=== PATIENT | female | born 1940 | race Caucasian/White ===

== ENCOUNTER 2017-03-23 23:35 | Emergency (ER) | payer MEDICARE, BC ==
[~2017-03-23] VITALS: Ht 162.6 cm; Wt 55.0 kg
[~2017-03-23 23:35] MED LIST: BACTDS PO; IBAN150T7 PO; IBUP400T22 PO
[2017-03-23 23:37] VITALS: Ht 162.6 cm; Wt 55.0 kg
[2017-03-24] MEDS ORDERED: ACETAMINOPHEN 500 MG TAB PO STA (00:17)
[2017-03-24] MEDS ORDERED: TETRACAINE 0.5% 4 ML OPH LEFT EYE ONE (00:30)
[2017-03-24] MEDS ORDERED: FLUORESCEIN STRIP LEFT EYE ONE (00:30)
[2017-03-24] MEDS ORDERED: ACET500C5 PO (01:03)
[2017-03-24] MEDS ORDERED: IBUP-1542 PO (01:03)
[2017-03-24] MEDS ORDERED: ACYC800T57 PO (01:04)
--- NOTE | 2017-03-24 01:26 | ERD ---
ER Documentation Chief Complaint Date/Time DATE: 03/24/17 TIME: 01:21 Chief Complaint migraine headache w/ a rash on the left forehead HPI This is 76-year-old female who presents the emergency department today complaining of a headache on the left side of her head and a rash. Patient states that 4 days ago she noticed a "funny sensation on the left side of her head". States that she has been under a lot of stress. States that she saw her primary care doctor and was told that her headache was stress related. States that she started noticing a rash couple of days ago. States she is taking ibuprofen and Tylenol for pain. Denies any fevers, blurred vision , dizziness. Denies any trauma. ROS All systems reviewed and are negative except as per history of present illness. Medications Home Meds Active Scripts Acyclovir* (Zovirax*) 800 Mg Tablet, 800 MG PO 5 TIMES DAILY for 10 Days, TAB Prov:CARIN PADILLA PA-C 03/24/17 Acetaminophen* (Tylophen*) 500 Mg Capsule, 1 CAP PO Q6H Y for PAIN AND OR ELEVATED TEMP, #30 CAP Prov:CARIN PADILLA PA-C 03/24/17 Ibuprofen* (Motrin*) 600 Mg Tab, 600 MG PO Q6, #30 TAB Prov:CARIN PADILLA PA-C 03/24/17 Ibuprofen* (Motrin*) 400 Mg Tab, 400 MG PO Q6, #14 TAB Prov:ELVIA FELDMAN MD 12/20/14 Sulfamethoxazole-Trimethoprim* (Bactrim* DS) 800-160 Mg Tab, 1 TAB PO BID for 7 Days, TAB Prov:ELVIA FELDMAN MD 12/20/14 Reported Medications Ibandronate Sodium* (Boniva*) 150 Mg Tablet, 150 MG PO Q28D, TAB 12/20/14 Allergies Allergies: Coded Allergies: No Known Allergy (Unverified , 12/20/14) PMhx/Soc History of Surgery: Yes (Sebaceous Cyst Biopsy) Anesthesia Reaction: No Hx Neurological Disorder: No Hx Respiratory Disorders: No Hx Cardiac Disorders: No Hx Psychiatric Problems: No Hx Miscellaneous Medical Probl: Yes (Osteoporosis,Shingles) Hx Alcohol Use: No Hx Substance Use: No Hx Tobacco Use: No Smoking Status: Never smoker Physical Exam Vitals Vital Signs Date Time Temp Pulse Resp B/P Pulse Ox O2 Delivery O2 Flow Rate FiO2 03/23/17 23:37 98.8 69 20 140/64 98 Physical Exam Const: pleasant, NAD Head: Atraumatic. Evidence of rash with small vesicles over left side of forehead and left side of parietal area of scalp Eyes: Normal Conjunctiva PERRLA. EOM intact. ENT: Normal External Ears, Nose and Mouth. Neck: Full range of motion..~ No meningismus. Resp: Clear to auscultation bilaterally Cardio: Regular rate and rhythm, no murmurs Abd: Soft, non tender, non distended. Normal bowel sounds Skin: Evidence of rash with small vesicles over left side of forehead and left side of parietal area of scalp Back: No midline or flank tenderness Ext: No cyanosis, or edema. Neur: Awake and alert nerves II through XII intact. No gait ataxia. Psych: Normal Mood and Affect Results 24 hrs Current Medications Medications (Trade) Dose Ordered Sig/Kenn Route PRN Reason Start Time Stop Time Status Last Admin Dose Admin Acetaminophen (Tylenol Tab) 500 mg ONCE STAT PO 03/24/17 00:17 10 00:20 DC 03/24/17 00:26 Tetracaine HCl (Tetracaine 0.5% Steri-Unit Kristina) 1 drop ONCE ONCE LEFT EYE 03/24/17 00:30 10 00:31 DC Fluorescein Sodium (Fwomc-O-Nbwvx) 1 strip ONCE ONCE LEFT EYE 03/24/17 00:30 03/24/17 00:31 DC Procedures/MDM This is a 76-year-old female who presents to the emergency department today for a headache on the left side of her head as well as a recently developed a rash. On physical exam patient appears to have evidence of shingles given the localized vesicles. Patient is afebrile and otherwise well-appearing. She has no focal neurologic deficits and no gait ataxia. Despite patient's age and complaints of headache I feel that it is likely caused by her shingles. I do not feel that she requires a head CT scan at this time. Low suspicion for acute hemorrhage, mass, abscess, meningitis. Patient did indicate that she does have good primary care follow-up in the doctor was willing to further evaluate her headache should it persist. Given location of patient's shingles rash over the left side of her forehead and left side of head and above eyebrow I did stain the patient's eye to look at it under fluorescein. There is no evidence of dendritic lesions. Low suspicion for ophthalmic involvement. There is no evidence of Corey sign. Patient is currently in recovery and declined any narcotic pain medications. She was given Tylenol for pain. She was given a prescription for Tylenol and Motrin for home in addition to acyclovir. At this time the patient is stable for discharge and outpatient management. Patient should follow up with their PCP in the next 1-2 days. They may return to the emergency department sooner for any persistent or worsening of symptoms. Patient understood and agreed with the plan. Departure Diagnosis: Primary Impression: Headache Headache type: unspecified Headache chronicity pattern: episodic headache Intractability: not intractable Qualified Code: R51 - Nonintractable episodic headache, unspecified headache type Additional Impression: Shingles Herpes zoster complications: without complications Qualified Code: B02.9 - Herpes zoster without complication Condition: Fair Patient Instructions: Self-Care for Headaches, Shingles (Herpes Zoster) Additional Instructions: Call your primary care doctor TOMORROW for an appointment during the next 1-2 days.See the doctor sooner or return here if your condition worsens before your appointment time. Tylenol every 4 hours or Motrin every 6 hours for pain or headache. Take antivirals as prescribed CARIN PADILLA PA-C Mar 24, 2017 01:26
== END 2017-03-24 01:22 | disposition home or self-care (01) ==
LOC: FTE 23:35
DX: B02.9 Zoster without complications (principal)
CPT/HCPCS: 99283

== ENCOUNTER 2017-03-25 00:02 | Emergency (ER) | payer BC, MEDICARE ==
[~2017-03-25 00:02] MED LIST changes: +ACET500C5 PO; +ACYC800T57 PO; +IBUP-1542 PO
--- NOTE | 2017-03-26 15:31 | EN ---
Date/Time of Note Date/Time of Note DATE: 03/26/17 TIME: 15:28 ER Progress Note I placed a call to check on the patient today and patient indicated she had come back to [facility] the next day as she was concerned that the rash was spreading towards her eye. Patient left without being seen. Patient did follow up with her training associate yesterday and stated that there was not any concern for any eye involvement at this time. She also stated that she started having some nausea and thinks it is the medication that she is taking. She states she took a Zofran that her friend gave her and she called her primary care doctor and her primary care doctor will call her in a prescription. She did say that her headache is reportedly better. I explained to her that if her headache returns or is not better that she should come back to the hospital or follow-up with her primary care doctor. Patient understood and thanked me for my call. CARIN PADILLA PA-C Mar 26, 2017 15:31
== END 2017-03-25 00:15 | disposition left against medical advice (07) ==
LOC: FTE 00:02 → E/R 00:15
DX: Z53.21 Procedure and treatment not carried out due to patient leaving prior to being seen by health care provider (principal)

== ENCOUNTER → 2018-05-15 | Outpatient (CLI) | END | disposition home or self-care (01) ==

== ENCOUNTER 2018-10-29 09:22 | Emergency (ER) | payer MEDICARE, BC ==
[~2018-10-29] VITALS: Ht 154.9 cm; Wt 53.3 kg
[~2018-10-29 09:22] MED LIST changes: +ACYC800T5 PO; -ACYC800T57 PO; +IBUP-1561 PO; -IBUP400T22 PO
[2018-10-29 09:39] VITALS: Ht 154.9 cm; Wt 53.3 kg
[2018-10-29] MEDS ORDERED: POLY17PO6 PO (10:09)
[2018-10-29] MEDS ORDERED: SENN-36 PO (10:09)
[2018-10-29] MEDS ORDERED: NA P133E3 RC (10:09)
[2018-10-29] MEDS ORDERED: TREX50 PO (10:09)
--- NOTE | 2018-10-29 10:13 | ERD ---
ER Documentation Chief Complaint Chief Complaint c/o severe constipation x3 weeks, sent by Dr. Star reed for evaluation HPI 78-year-old woman complaining of constipation, last full bowel movement about 3 weeks ago. She saw her PMD yesterday who ordered blood work and a CT scan of the abdomen pelvis with IV contrast, she is scheduled to undergo imaging today but she requires basic blood work prior to IV contrast administration. She states she has used some stool softeners and has tried Fleet enema over the last 3 weeks without improvement although she has been able to pass gas without difficulty. She has had no difficulty eating, no abdominal distention or abdominal pain, no vomiting, no chest pain or shortness of breath, no fevers or chills, no weight loss ROS All systems reviewed and are negative except as per history of present illness. Medications Home Meds Active Scripts Polyethylene Glycol* (Miralax*) 17 Gm Powd.pack, 17 GM PO DAILY PRN for CONSTIPATION, #7 Prov:SCOOBY ORTIZ MD 10/29/18 Sennosides* (Senokot*) 8.6 Mg Tablet, 1 TAB PO BID PRN for CONSTIPATION, #20 TAB Prov:SCOOBY ORTIZ MD 10/29/18 Na Phos,M-B/Na Phos,Di-Ba (Enema) 133 Ml Enema, 133 ML RC DAILY, #1 ENEMA Prov:SCOOBY ORTIZ MD 10/29/18 Naltrexone Hcl (Trexan) 50 Mg Tab, 25 MG PO DAILY, #1 TAB Prov:SCOOBY ORTIZ MD 10/29/18 Discontinued Reported Medications Ibandronate Sodium* (Boniva*) 150 Mg Tablet, 150 MG PO Q28D, TAB 12/20/14 Discontinued Scripts Acyclovir* (Zovirax*) 800 Mg Tablet, 800 MG PO 5 TIMES DAILY for 10 Days, TAB Prov:CARIN PADILLA PA-C 03/24/17 Acetaminophen* (Tylophen*) 500 Mg Capsule, 1 CAP PO Q6H PRN for PAIN AND OR ELEVATED TEMP, #30 CAP Prov:CARIN PADILLA PA-C 03/24/17 Ibuprofen* (Motrin*) 600 Mg Tab, 600 MG PO Q6, #30 TAB Prov:CARIN PADILLA PA-C 03/24/17 Ibuprofen* (Motrin*) 400 Mg Tab, 400 MG PO Q6, #14 TAB Prov:ELVIA FELDMAN MD 12/20/14 Sulfamethoxazole-Trimethoprim* (Bactrim* DS) 800-160 Mg Tab, 1 TAB PO BID for 7 Days, TAB Prov:ELVIA FELDMAN MD 12/20/14 Allergies Allergies: Coded Allergies: No Known Allergy (Unverified , 10/29/18) PMhx/Soc History of Surgery: Yes (Sebaceous Cyst Biopsy) Anesthesia Reaction: No Hx Neurological Disorder: No Hx Respiratory Disorders: No Hx Cardiac Disorders: No Hx Psychiatric Problems: No Hx Miscellaneous Medical Probl: Yes (Osteoporosis,Shingles) Hx Alcohol Use: No Hx Substance Use: No Hx Tobacco Use: No FmHx Family History: No diabetes Physical Exam Vitals Vital Signs Date Temp Pulse Resp B/P (MAP) Pulse Ox O2 O2 Flow FiO2 Time Delivery Rate 10/29/18 97.9 66 17 145/65 100 Room Air 11:08 (91) 10/29/18 98.7 64 20 117/65 99 09:39 (82) Physical Exam GENERAL: Well-developed, well-nourished, well-hydrated, in no apparent distress, looks nontoxic in appearance CARDIAC: Regular rate and rhythm, no murmurs rubs or gallops LUNGS: Clear bilaterally no wheezing crackles or stridor ABDOMEN: Soft nontender, no guarding, no rigidity, no rebound, no psoas sign no obturator sign. SKIN: Warm and dry to touch, no abrasions, contusions, or hematomas, no lacerations, no ecchymosis, no target lesions, and without ulcers EXTREMITIES: No clubbing cyanosis or edema, calves are bilaterally symmetrical, no Homans sign, no popliteal cord sign. Distal pulses equal and bilateral PSYCH: Normal affect without agitation or irritability Result Diagram: 10/29/18 1020 10/29/18 1020 Results 24 hrs Laboratory Tests Test 10/29/18 10:20 White Blood Count 5.3 10^3/ul Red Blood Count 4.25 10^6/ul Hemoglobin 13.3 g/dl Hematocrit 39.6 % Mean Corpuscular Volume 93.2 fl Mean Corpuscular Hemoglobin 31.3 pg Mean Corpuscular Hemoglobin Concent 33.6 g/dl Red Cell Distribution Width 12.0 % Platelet Count 195 10^3/UL Mean Platelet Volume 10.9 fl Immature Granulocytes % 0.200 % Neutrophils % 60.8 % Lymphocytes % 30.8 % Monocytes % 7.0 % Eosinophils % 0.8 % Basophils % 0.4 % Nucleated Red Blood Cells % 0.0 /100WBC Immature Granulocytes # 0.010 10^3/ul Neutrophils # 3.2 10^3/ul Lymphocytes # 1.6 10^3/ul Monocytes # 0.4 10^3/ul Eosinophils # 0.0 10^3/ul Basophils # 0.0 10^3/ul Nucleated Red Blood Cells # 0.0 10^3/ul Sodium Level 142 mmol/L Potassium Level 4.8 mmol/L Chloride Level 109 mmol/L Carbon Dioxide Level 26 mmol/L Anion Gap 7 Blood Urea Nitrogen 17 mg/dl Creatinine 0.84 mg/dl Est Glomerular Filtrat Rate mL/min mL/min Glucose Level 97 mg/dl Calcium Level 9.8 mg/dl Procedures/MDM CBC and electrolytes were normal. Abdominal examination was repeated by me prior to discharge and remains benign, she has a soft nontender belly and has no concerning points on history and physical, she is able to pass gas and does not appear obstructed or obstipated. She will be discharged for continued outpatient management with her PMD Patient feels much better at this time, and vital signs are normal, symptoms have improved. I did give strict instructions to return to the ED if symptoms continue or worsen, patient will otherwise follow-up with primary care physician. Patient understood instructions and agreed to plan. Disclaimer: Inadvertent spelling and grammatical errors are likely due to EHR/dictation software use and do not reflect on the overall quality of patient care. Also, please note that the electronic time recorded on this note does not necessarily reflect the actual time of the patient encounter. Departure Diagnosis: Primary Impression: Constipation Constipation type: slow transit constipation Qualified Codes: K59.01 - Slow transit constipation Condition: Good Patient Instructions: Constipation (Adult) SCOOBY ORTIZ MD October 29, 2018 10:13
[2018-10-29 11:08] VITALS: BP 145/65; PULSE 66; RESP 17
== END 2018-10-29 11:39 | disposition home or self-care (01) ==
LOC: E/R 09:22
DX: K59.01 Slow transit constipation (principal)
CPT/HCPCS: 80048; 85025; 99283